=== PATIENT | female | born 1955 | race Caucasian/White ===

== ENCOUNTER 2018-12-27 23:00 | Emergency (ER) | payer SELFPAY ==
[2018-12-28] MEDS: CYCLOBENZAPRINE 10 MG TAB PO (01:23)
[2018-12-28] MEDS: KETOROLAC 30 MG INJ IM (01:24)
== END 2018-12-28 01:54 | disposition home or self-care (01) ==
LOC: FTE 23:00
DX: S13.4XXA Sprain of ligaments of cervical spine, initial encounter (principal); V49.49XA Driver injured in collision with other motor vehicles in traffic accident, initial encounter
CPT/HCPCS: 96372; 99284-25